=== PATIENT | male | born 1950 | race Caucasian/White ===

== ENCOUNTER 2016-12-30 19:47 | Emergency (ER) | payer OTHER ==
[~2016-12-30] VITALS: Ht 177.8 cm; Wt 82.0 kg
[2016-12-30 19:58] VITALS: Ht 177.8 cm; Wt 82.0 kg
--- NOTE | 2016-12-30 19:58 | QN ---
Documentation Comment Patient was seen immediately upon arrival as he arrived by ambulance. Medical screening exam was initiated. The patient will be sent to triage for further vital signs as his chief complaint is back pain and he appears stable. CHAD BOYD MD December 30, 2016 19:58
--- NOTE | 2016-12-30 21:17 | ERD ---
ER Documentation Chief Complaint Date/Time DATE: 12/30/16 TIME: 21:15 Chief Complaint BIB RA 889 C/O BACK PAIN HPI This 66-year-old male presents here in emergency department for complaints of left lower back pain radiating to the left lower leg started 2 days ago. Patient described the pain as sharp pain, 6/10 scale, and is accompanied with shooting pain from the left back to the left lower leg. Patient denies any trauma in the back. Patient denies any incontinence. Patient denies any fever or chills. Patient states that he was walking a lot lately and started to have the pain afterwards. ROS All systems reviewed and are negative except as per history of present illness. Medications Home Meds Reported Medications [none] Unknown Strength No Conflict Check 12/30/16 Allergies Allergies: Coded Allergies: No Known Allergy (Unverified , 12/30/16) PMhx/Soc Medical and Surgical Hx: pt denies Medical Hx, pt denies Surgical Hx History of Surgery: No Anesthesia Reaction: No Hx Neurological Disorder: No Hx Respiratory Disorders: Yes (bloating) Hx Cardiac Disorders: No Hx Psychiatric Problems: No Hx Miscellaneous Medical Probl: Yes (hep c; ) Hx Alcohol Use: No Hx Substance Use: No Hx Tobacco Use: No Smoking Status: Never smoker FmHx Family History: No coronary disease, No diabetes, No other Physical Exam Vitals Vital Signs Date Time Temp Pulse Resp B/P Pulse Ox O2 Delivery O2 Flow Rate FiO2 12/30/16 19:58 97.7 88 16 110/72 97 Physical Exam GENERAL: The patient is well developed and appropriate for usual state of health, in no apparent distress. CHEST: Clear to auscultation bilaterally. There are no rales, wheezes or rhonchi. HEART: Regular rate and rhythm. No murmurs, clicks, rubs or gallops. No S3 or S4. ABDOMEN: Soft, nontender and nondistended. Good bowel sounds. No rebound or guarding. No gross peritonitis. No gross organomegaly or masses. No Rodriguez sign or McBurney point tenderness. BACK: No midline or flank tenderness. Positive left straight leg test, tenderness on palpation on the left paraspinal aspect of the lumbar spine. EXTREMITIES: Equal pulses bilaterally. There is no peripheral clubbing, cyanosis or edema. No focal swelling or erythema. Full range of motion. Grossly neurovascularly intact. NEURO: Alert and oriented. Cranial nerves 2-12 intact. Motor strength in all 4 extremities with 5/5 strength. Sensation grossly intact. Normal speech and gait. SKIN: There is no apparent rash or petechia. The skin is warm and dry. HEMATOLOGIC AND LYMPHATIC: There is no evidence of excessive bruising or lymphedema. No gross cervical, axillary, or inguinal lymphadenopathy. Results 24 hrs PROCEDURE: CT Lumbar Spine without contrast. CLINICAL INDICATION: Low back pain. TECHNIQUE: CT of the lumbar spine without contrast was performed. Axial images were obtained through the lumbar spine and reformatted at 2.5 mm slice thickness. Coronal and sagittal images were reformatted. The CTDIvol = 10.46 mGy and DLP = 271.40 mGy-cm. COMPARISON: X-ray series 12/18/2008 FINDINGS: Vertebral bodies: Coronal images best demonstrate sixth [id number]-zqt-xfaqzhc lumbar vertebral bodies. Stature is preserved at every level without acute fracture Endplate degenerative irregularity and spondylosis is worse most pronounced at the inferior L2 to the inferior L4 levels. Mild diffuse demineralization cannot exclude osteopenia. Mild retrolisthesis of L3 relative to L4 is present similar to the prior x-ray. Conus medularis region: Normal in attenuation and determination estimated at the L1 level. T12-L1: No discogenic abnormality of significance is seen, mild anterior spondylosis is present. Minimal bilateral facet arthropathy is noted. The central canal is patent. There is no evidence for foraminal stenosis. L1-L2: Vacuum disk phenomenon with moderate degenerative disk narrowing and a tiny circumferential osteophyte and disk complex without protrusion. Minimal bilateral facet arthropathy is present. The ligamentum flava are normal in thickness. The central canal is patent. There is no evidence for foraminal stenosis. L2-L3: Vacuum disk phenomenon with moderate to severe degenerative disk narrowing and anterior spondylosis with trace circumferential osteophyte and disk complex but no disk protrusion. Endplate degenerative subcortical cyst formation and sclerosis is worse than on the prior x-ray even allowing for the different modalities Minimal vacuum degenerative phenomenon of the left facet joint is present the right facet joint is unremarkable. The ligamentum flava are normal in thickness. The central canal is patent. There is no evidence for foraminal stenosis. L3-L4: Vacuum disk phenomenon with severe loss of disk stature and extensive endplate degenerative subcortical cyst formation, concave appearance of the superior L3 endplate to the right of midline is believed to be degenerative. Circumferential osteophyte and disk complex of approximate 3 mm is seen without focal disk protrusion. There is no facet arthropathy. The ligamentum flava are normal in thickness. The central canal is patent. Osteophyte and disk complex contributes to moderate bilateral foraminal narrowing. L4-L5: Vacuum disk phenomenon with moderate to severe asymmetric disk narrowing to the left and degenerative subcortical cyst formation with anterior posterior osteophyte formation. Circumferential osteophyte and disk complex of approximate 3 mm is seen asymmetric to the left. There is no facet arthropathy. The ligamentum flava are normal in thickness. The central canal is patent. Osteophyte and disk complex contributes to moderate left and mild right foraminal stenosis. L5-L6: Moderate to severe degenerative disk narrowing asymmetric to the right with endplate degenerative subcortical cyst formation. Circumferential osteophyte and disk complex of 4 mm extends into the foramina. Minimal bilateral facet arthropathy is seen. The ligamentum flava are normal in thickness. The central canal is patent. Osteophyte and disk contribute to moderate right foraminal stenosis the left foramen appears patent. L6-S1: No discogenic abnormality of significance is seen. Mild bilateral facet arthropathy is present. The ligamentum flava are normal in thickness. The central canal is patent. There is no evidence for foraminal stenosis. Sacrum and sacroiliac joints: No abnormalities are identified, the joints are normal and symmetric. None spine related findings: Atherosclerotic calcification of the abdominal aorta is seen. The right kidney shows partially a large cyst, cystic neoplasm is difficult to exclude RPTAT:HJJR IMPRESSION: 1. There are 6 [id number]-rfb-[id number] lumbar vertebral bodies as seen on the x-ray of 12/18/2008. No acute fracture is demonstrated. 2. Progression of degenerative endplate changes with extensive endplate subcortical cyst formation and irregularity at the L2-3, L3-4 and L4-5, findings worse than the prior x-ray allowing for different modalities. 3. Degenerative disk narrowing at L2-3 with mild retrolisthesis, osteophyte and disk complex contributing to bilateral foraminal stenosis. 4. Degenerative disk narrowing asymmetric to the left at L4-5 causing left greater than right foraminal narrowing. 5. Asymmetric degenerative disk narrowing to the right at L5-6 with right greater than left foraminal stenosis. 6. Partially visualized large right renal mass is likely a acute renal cyst but further evaluation should be considered. 7. Aortic atherosclerosis is present. Physician Juvenal Date Time Electronically viewed and signed by Physician Juvenal on 12/30/2016 21:50 JR/ CC: RICKY ODONNELL [employer]PER[employer]OR Procedures/MDM Medical Decision Making: Patient's pain is most likely consistent with a back strain, possible sciatica, kidney also from degenerative disc disease. There is an incidental finding of with acute renal system the right kidney, patient was advised about this, to have a repeat ultrasound or CT scan of affected area and to urology or nephrology specialist for further evaluation of this. Patient was verbalizing distending of these instructions. There is no suspicion for neurovascular compromise. Patient has intact sensation and circulation of the affected extremity. There is low suspicion for septic arthritis. Patient does not have any fever. Radiology exams of the affected area does not show any fracture or dislocation. Disposition: Home. Patient is given prescription for ibuprofen for pain, Flexeril for muscle spasms. Patient was advised to avoid heavy lifting. Patient was advised that if symptoms are worse, numbness, tingling, high fever, unable to move joint, worsening symptoms, to return to emergency department immediately. Otherwise, patient is advised to follow up with the primary care doctor in 5-7 days for reevaluation of symptoms.There is an incidental finding of with acute renal system the right kidney, patient was advised about this, to have a repeat ultrasound or CT scan of affected area and to urology or nephrology specialist for further evaluation of this. Departure Diagnosis: Primary Impression: Back pain Back pain location: low back pain Chronicity: acute Back pain laterality: left Sciatica presence: with sciatica Sciatica laterality: sciatica of left side Qualified Code: M54.42 - Acute left-sided low back pain with left-sided sciatica Additional Impression: Renal cyst Condition: Stable Patient Instructions: Back Pain W/ Sciatica Additional Instructions: Patient is given prescription for ibuprofen for pain, Flexeril for muscle spasms. Patient was advised to avoid heavy lifting. Patient was advised that if symptoms are worse, numbness, tingling, high fever, unable to move joint, worsening symptoms, to return to emergency department immediately. Otherwise, patient is advised to follow up with the primary care doctor in 5-7 days for reevaluation of symptoms.There is an incidental finding of with acute renal system the right kidney, patient was advised about this, to have a repeat ultrasound or CT scan of affected area and to urology or nephrology specialist for further evaluation of this. RICKY ODONNELL NP December 30, 2016 21:17
--- NOTE | 2016-12-30 21:51 | RADRPT ---
PROCEDURE: CT Lumbar Spine without contrast. CLINICAL INDICATION: Low back pain. TECHNIQUE: CT of the lumbar spine without contrast was performed. Axial images were obtained thro [facility] the lumbar spine and reformatted at 2.5 mm slice thickness. Coronal and sagittal images were ref ormatted. The CTDIvol = 10.46 mGy and DLP = 271.40 mGy-cm. COMPARISON: X-ray series 12/18/2008 FINDINGS: Vertebral bodies: Coronal images best demonstrate sixth sri-eep-ejexeat lumbar vertebral bodies. St ature is preserved at every level without acute fracture Endplate degenerative irregularity and spon dylosis is worse most pronounced at the inferior L2 to the inferior L4 levels. Mild diffuse deminera lization cannot exclude osteopenia. Mild retrolisthesis of L3 relative to L4 is present similar to the prior x-ray. Conus medularis region: Normal in attenuation and determination estimated at the L1 level. T12-L1: No discogenic abnormality of significance is seen, mild anterior spondylosis is present. Min imal bilateral facet arthropathy is noted. The central canal is patent. There is no evidence for f oraminal stenosis. L1-L2: Vacuum disk phenomenon with moderate degenerative disk narrowing and a tiny circumferential o steophyte and disk complex without protrusion. Minimal bilateral facet arthropathy is present. The l igamentum flava are normal in thickness. The central canal is patent. There is no evidence for for aminal stenosis. L2-L3: Vacuum disk phenomenon with moderate to severe degenerative disk narrowing and anterior spond ylosis with trace circumferential osteophyte and disk complex but no disk protrusion. Endplate degen erative subcortical cyst formation and sclerosis is worse than on the prior x-ray even allowing for the different modalities Minimal vacuum degenerative phenomenon of the left facet joint is present t he right facet joint is unremarkable. The ligamentum flava are normal in thickness. The central can al is patent. There is no evidence for foraminal stenosis. L3-L4: Vacuum disk phenomenon with severe loss of disk stature and extensive endplate degenerative s ubcortical cyst formation, concave appearance of the superior L3 endplate to the right of midline is believed to be degenerative. Circumferential osteophyte and disk complex of approximate 3 mm is se en without focal disk protrusion. There is no facet arthropathy. The ligamentum flava are normal in thickness. The central canal is patent. Osteophyte and disk complex contributes to moderate bilate ral foraminal narrowing. L4-L5: Vacuum disk phenomenon with moderate to severe asymmetric disk narrowing to the left and dege nerative subcortical cyst formation with anterior posterior osteophyte formation. Circumferential o steophyte and disk complex of approximate 3 mm is seen asymmetric to the left. There is no facet art hropathy. The ligamentum flava are normal in thickness. The central canal is patent. Osteophyte an d disk complex contributes to moderate left and mild right foraminal stenosis. L5-L6: Moderate to severe degenerative disk narrowing asymmetric to the right with endplate degenera tive subcortical cyst formation. Circumferential osteophyte and disk complex of 4 mm extends into t he foramina. Minimal bilateral facet arthropathy is seen. The ligamentum flava are normal in thickne ss. The central canal is patent. Osteophyte and disk contribute to moderate right foraminal stenos is the left foramen appears patent. L6-S1: No discogenic abnormality of significance is seen. Mild bilateral facet arthropathy is presen t. The ligamentum flava are normal in thickness. The central canal is patent. There is no evidence for foraminal stenosis. Sacrum and sacroiliac joints: No abnormalities are identified, the joints are normal and symmetric. None spine related findings: Atherosclerotic calcification of the abdominal aorta is seen. The righ t kidney shows partially a large cyst, cystic neoplasm is difficult to exclude RPTAT:HJJR IMPRESSION: 1. There are 6 [id number]-aly-yfrljaj lumbar vertebral bodies as seen on the x-ray of 12/18/2008. No acute fracture is demonstrated. 2. Progression of degenerative endplate changes with extensive endplate subcortical cyst formation and irregularity at the L2-3, L3-4 and L4-5, findings worse than the prior x-ray allowing for differ ent modalities. 3. Degenerative disk narrowing at L2-3 with mild retrolisthesis, osteophyte and disk complex contri buting to bilateral foraminal stenosis. 4. Degenerative disk narrowing asymmetric to the left at L4-5 causing left greater than right shaun inal narrowing. 5. Asymmetric degenerative disk narrowing to the right at L5-6 with right greater than left foramin al stenosis. 6. Partially visualized large right renal mass is likely a acute renal cyst but further evaluation should be considered. 7. Aortic atherosclerosis is present. Dillan Glesaon, Physician Date Time Electronically viewed and signed by Dillan Gleason Physician on 12/30/2016 21:50 JR/
[2016-12-30] MEDS ORDERED: CYCL-319 PO (22:00)
[2016-12-30] MEDS ORDERED: IBUP-1542 PO (22:00)
[2016-12-30] MEDS ORDERED: KETOROLAC 60 MG INJ IM STA (22:19)
== END 2016-12-30 22:59 | disposition home or self-care (01) ==
LOC: FTE 19:47
DX: M54.42 Lumbago with sciatica, left side (principal)
CPT/HCPCS: 72131; 96372; J1885; Z7502

== ENCOUNTER 2017-04-05 19:31 | Emergency (ER) | payer MEDICAID, OTHER ==
[~2017-04-05] VITALS: Ht 177.8 cm; Wt 65.5 kg
[~2017-04-05 19:31] MED LIST: CYCL-319 PO; IBUP-1542 PO
[2017-04-05 20:04] VITALS: Ht 177.8 cm; Wt 65.5 kg
== END 2017-04-05 20:02 | disposition left against medical advice (07) ==
LOC: E/R 19:31
DX: Z53.21 Procedure and treatment not carried out due to patient leaving prior to being seen by health care provider (principal)